=== PATIENT | male | born 1975 | race Caucasian/White ===

== ENCOUNTER 2019-10-04 02:22 | Inpatient (IN) | payer BC ==
[2019-10-04] MEDS ORDERED: Senokot S 8.6-50 MG TAB PO PRN (04:26)
[2019-10-04] MEDS ORDERED: Ondansetron PF 4 MG/2 ML Vial IVP PRN (04:26)
[2019-10-04] MEDS ORDERED: Acetaminophen 325 MG TAB PO PRN (04:26)
[2019-10-04] MEDS ORDERED: Dextrose 5 % And 0.9 % NaCl 1,000 ML IV SCH (05:00)
[2019-10-04] MEDS ORDERED: Sodium Chloride 0.9% 1,000 ML IV SCH (05:00)
[2019-10-04 05:14] LABS: Hemoglobin 19.5 g/dL (14.0-18.0); Mean Corpuscular HGB CONC 33.6 g/dL (32.0-36.0); Mean Corpuscular Hemoglobin 30.5 pg (27.0-31.0); Mean Corpuscular Volume 90.8 fL (78.0-98.0); Mean Platelet Volume 7.5 fL (7.4-10.4); Platelet Count 324 thou/uL (130-400); RBC Distribution Width 12.1 % (11.5-14.5); Red Blood Cell (RBC) Count 6.39 mill/uL (4.70-6.10); White Blood Cell (WBC) Count 22.1 thou/uL (4.8-10.8)
[2019-10-04 05:27] LABS: Anion Gap 13 mmol/L (10-20); BUN (Urea Nitrogen) 12 mg/dL (8.9-20.6); Calc. Creatinine Clearance 0 mL/min (70-130); Calcium 8.5 mg/dL (7.8-10.44); Carbon Dioxide 25 mmol/L (22-29); Chloride 105 mmol/L (98-107); Estimated GFR-MDRD 44; Glucose 111 mg/dL (70-105); Potassium 4.5 mmol/L (3.5-5.1); Sodium 138 mmol/L (136-145)
[2019-10-04 05:35] LABS: Band 22 % (5-11); Lymphocytes 7 % (21-51); MDiff Complete? YES; Metamyelocyte 1 % (0-0); Monocytes 3 % (0-10); Neutrophil 67 % (42-75)
--- NOTE | 2019-10-04 06:16 | HP ---
CHIEF COMPLAINT: Diarrhea, nausea, and vomiting. HISTORY OF PRESENT ILLNESS: The patient is a very pleasant 43-year-old male with a history of asthma, who presents to the hospital with complaints of diarrhea and nausea and vomiting going on for the past 1-1/2 day. Furthermore, the patient states that he had sudden onset of abdominal cramping with significant amount of diarrhea for about a day and a half. He denies eating out anywhere. Denies any sick contacts. Denies any travel. Denies any [id number] medication or prescription medication use. The patient denies any family history of autoimmune Crohn's or ulcerative colitis. The patient also has been having nausea and vomiting and has not been able to keep anything down. He denies any fevers, however, states that he has been feeling cold. The patient states that he did take some Imodium, however, without any relief. PAST MEDICAL HISTORY: History of asthma. PAST SURGICAL HISTORY: Denies. FAMILY HISTORY: No history of heart disease, cancer, Crohn's disease or ulcerative colitis or any autoimmune disease per the patient. SOCIAL HISTORY: He currently chews tobacco. No alcohol use. No drug use. He is a full code. Lives with his . REVIEW OF SYSTEMS: All negative except for the ones mentioned above in the HPI. ALLERGIES: NO KNOWN DRUG ALLERGIES. MEDICATIONS: He takes Symbicort. PHYSICAL EXAMINATION: VITAL SIGNS: Temperature of 98.8, oxygen saturation 96% on room air, respirations are 18, and blood pressure 106/97. GENERAL: He is awake, alert, and oriented x3. Appears ill. CARDIOVASCULAR: S1 and S2 present. No murmurs, rubs, or gallops. LUNGS: Clear to auscultation. No rhonchi or wheezes noted. ABDOMEN: Soft. Bowel sounds are present x2. Pain upon palpation to lower abdominal area. NEUROVASCULAR: There are no focal deficits noted. SKIN: No cuts, lesions, or bruises noted. EXTREMITIES: No pitting edema noted. Pedal pulses present x2. LABORATORY RESULTS: His WBC was 19.9, hemoglobin is 21, hematocrit is 66.7, and platelets of 368. He does have bands of 15. Chemistries; sodium of 134, potassium 4.7, and creatinine of 2.04. The patient had a CT of abdomen and pelvis, which indicated diffuse colonic and distal small bowel wall thickening, favoring inflammatory bowel disease. ASSESSMENT AND PLAN: The patient is a very pleasant 43-year-old male, who presents to the hospital with nausea, vomiting, and diarrhea going on for the past 1-1/2 days. 1. Colitis. The patient is having severe diarrhea. His last diarrhea was while I was in the ER interviewing him. It appears very mucousy. No blood was noted in the diarrhea. We will start the patient on IV hydration. We will give him another bolus and started him on D5 NS at 100 mL an hour. After the bolus, his lactic acid was 2.1. We will start him on Cipro and Flagyl. GI has been consulted. We will check stool studies. 2. Acute kidney injury, most likely secondary to dehydration. We will continue IV hydration and monitor his urine output. 3. Non-anion gap metabolic acidosis. Again, this is probably most likely from diarrhea. We will continue to monitor. 4. Leukocytosis with bandemia, most likely due to his nausea, vomiting, and diarrhea. We will continue IV hydration and antibiotics. 5. Elevated hemoglobin. I believe this is just hemoconcentrated. I will recheck another CBC and BMP. 6. We will put the patient on enoxaparin for deep venous thrombosis prophylaxis. Job ID: [id number]
[2019-10-04] MEDS: metroNIDAZOLE 500 MG in Premix Bag 1 BAG IVPB SCH ×3 (06:32→22:31)
[2019-10-04] MEDS: Dextrose 5 % And 0.9 % NaCl 1,000 ML IV SCH ×3 (06:36→20:09)
[2019-10-04 07:11] VITALS: BMI 33.4
[2019-10-04] MEDS: Enoxaparin Sodium 40 MG/0.4 ML SYRINGE SC SCH (09:26)
[2019-10-04 11:43] LABS: Hemoglobin 15.9 g/dL (14.0-18.0); Mean Corpuscular HGB CONC 33.6 g/dL (32.0-36.0); Mean Corpuscular Volume 92.2 fL (78.0-98.0); Mean Platelet Volume 7.3 fL (7.4-10.4); Platelet Count 281 thou/uL (130-400); RBC Distribution Width 11.9 % (11.5-14.5); Red Blood Cell (RBC) Count 5.14 mill/uL (4.70-6.10); White Blood Cell (WBC) Count 17.2 thou/uL (4.8-10.8)
[2019-10-04 12:01] LABS: Anion Gap 10 mmol/L (10-20); BUN (Urea Nitrogen) 12 mg/dL (8.9-20.6); Calc. Creatinine Clearance 102 mL/min (70-130); Calcium 7.5 mg/dL (7.8-10.44); Carbon Dioxide 21 mmol/L (22-29); Chloride 108 mmol/L (98-107); Estimated GFR-MDRD 57; Glucose 119 mg/dL (70-105); Potassium 3.8 mmol/L (3.5-5.1); Sodium 135 mmol/L (136-145)
[2019-10-04 12:23] LABS: Band 16 % (5-11); Eosinophils 1 % (0-10); Lymphocytes 6 % (21-51); MDiff Complete? YES; Monocytes 6 % (0-10); Neutrophil 70 % (42-75); RBC Morphology Normal; Reactive Lymphocytes 1 % (0-10)
--- NOTE | 2019-10-04 13:39 | PDOC.EVN ---
Event Note - Event Note Event Note: Seen and examined. Discussed with at bedside. Patient alert and oriented times three with good insight and clinical condition. Patient is somnolent and hasn't slept well since this started. Abdominal pain has resolved. No longer vomiting. BP blood work shows down trending of WBC count and improvement of renal function. Patient is responding to maximal medical therapy. Patient on appropriate antibiotics. Pending G.I. evaluation. Patient has not had any overt black or blood in bowel movement or vomitus.
--- NOTE | 2019-10-04 14:43 | RAD ---
XR Chest 1 View History: Cough Comparison: None. Findings: Lungs are clear. No pneumothorax. No effusion. No acute osseous abnormality. Cardiac silhou ette and mediastinal contours are within normal limits. Impression: No acute intrathoracic abnormality.
[2019-10-04] MEDS: Morphine 2 MG/ML SYRINGE SLOW IVP PRN (17:13)
[2019-10-04] MEDS: Mometasone/Formoterol 120 PUFF INHALER INH SCH (18:16)
--- NOTE | 2019-10-04 19:11 | CON ---
DATE OF CONSULTATION: 10/04/2019 REASON FOR CONSULTATION: Increased diarrhea and abdominal pain. CONSULTING PROVIDER: Dr. Sofy Rosario. HISTORY OF PRESENT ILLNESS: The patient is a 43-year-old male with past medical history of asthma, low testosterone (getting steroid injections as an outpatient), and possible polycythemia, presenting with complaints of diarrhea and abdominal pain. The patient states that he was in his usual state of health until approximately 2 to 3 days ago when he had acute onset of frequent voluminous diarrhea characterized as having approximately 20 to 30 liquid bowel movements in a 24-hour period. The diarrhea consisted primarily of mucus and liquid with small amount of stool and sloughing of the colonic lining. However, he denied any appearance of overt hematochezia, although he did have one episode of a blood-tinged stool. With this increased frequency of diarrhea, he did not have any increased difficulty with defecation that would require straining or abdominal pressure to facilitate defecation. However, with the appearance of this diarrhea, it was associated with increased lower abdominal pain that was characterized as a sharp type pain, would radiate to the generalized abdomen and was constant with waxing and waning severity. This pain was worse with increased physical activity/movement and sometimes worse with having a bowel movement, although the patient did explain that he did have some pain relief after having a bowel movement as well. This pain reached a severity of 10/10. Associated symptoms with the above were nausea and vomiting with nonbloody emesis, diaphoresis, and subjective chills. However, the patient denied any overt fever, hematemesis, melena, dysphagia, odynophagia, or significant weight loss. With the increase in his diarrhea and abdominal pain, it prompted him to seek healthcare assistance at the [facility] and while in the ER, the patient was placed on IV fluid resuscitation as well as started on antibiotics in light of a possible infectious etiology. 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 REVIEW OF SYSTEMS: A 10-category review of systems was obtained with all responses negative except for the pertinent positives as listed in HPI. PAST MEDICAL HISTORY: As per HPI. PAST SURGICAL HISTORY: None. FAMILY HISTORY: Denies any GI malignancies or inflammatory bowel disease. SOCIAL HISTORY: Denies any alcohol or illicit drug use. Although, he currently uses chewing tobacco. OUTPATIENT MEDICATIONS: Symbicort. ALLERGIES: NO KNOWN DRUG ALLERGIES. PHYSICAL EXAMINATION: VITAL SIGNS: Temperature 98.1, pulse 100, blood pressure 144/75, respiratory rate 18, and saturating 94% on room air. GENERAL: The patient was lying in bed, in no acute distress. Alert and oriented x4. HEENT: Normocephalic and atraumatic. NECK: Supple. No JVD or scleral icterus noted. CARDIOVASCULAR: Tachycardic rate, but regular rhythm. No discernible gallops or rubs. RESPIRATORY: Clear to auscultation bilaterally with no discernible wheezes or rales. ABDOMEN: Normoactive bowel sounds. Soft and nondistended. Tenderness to palpation in all abdominal quadrants. EXTREMITIES: No cyanosis, clubbing, or edema. LABORATORY DATA: CBC with a white blood cell count of 17.2, hemoglobin 15.9, hematocrit 47.4, platelets 281, bands of 22%. Chemistry with a sodium of 135, potassium 3.8, chloride 108, CO2 of 21, BUN 12, creatinine 1.38, and glucose 119. IMAGING DATA: No current GI imaging is available for review. ASSESSMENT AND PLAN: The patient is a 43-year-old male with past medical history of asthma, low testosterone on supplemental injections, and possible polycythemia, presenting with acute onset of diarrhea associated with elevated white blood cell count consistent with acute infectious diarrhea. Acute infectious diarrhea. The patient is presenting with acute onset of frequent voluminous stools over the last 2 to 3 days after the ingestion of unwashed blueberries. This was associated with increased abdominal pain, nausea, vomiting with nonbloody emesis, and diaphoresis as well. Again, most consistent with acute infectious diarrhea. Stool studies are still pending at this time. However, the evaluation for Clostridium difficile has been negative thus far. Given that the antibiotics for this condition were started prior to obtaining stool samples, speciation of the exact pathogen may not be ascertained in order to either tailor antibiotics or evaluate for further infections. However, at this time, the patient is currently responding to more conservative management including IV fluid support and antibiotic administration with both ciprofloxacin and metronidazole. Recommendations: 1. We would continue the patient on IV fluid resuscitation, given his significant voluminous diarrhea and most likely dehydration associated with this condition. 2. We would monitor the patient's potassium given significant losses with frequent diarrhea. 3. We would continue the antibiotics for the time being unless speciation of the causative pathogen can be established and tailoring of antibiotics at that time. If all stool studies are negative, then I would recommend continuation of antibiotics for approximately 7-day course. 4. Pain control per primary team. 5. Can continue the clear liquid diet and advance diet as tolerated. 6. We would monitor the patient's chemistries daily for possible hemolytic uremia syndrome associated with an antibiotic administration with infectious pathogens. We will continue to follow. Please call with any questions. Job ID: [id number]
[2019-10-05] MEDS: Morphine 2 MG/ML SYRINGE SLOW IVP PRN ×3 (04:55→20:03)
[2019-10-05] MEDS: Dextrose 5 % And 0.9 % NaCl 1,000 ML IV SCH ×3 (05:00→14:47)
[2019-10-05] MEDS: metroNIDAZOLE 500 MG in Premix Bag 1 BAG IVPB SCH ×3 (05:01→21:42)
[2019-10-05 05:16] LABS: #Eosinphils 0.2 thou/uL (0.0-0.7); #Lymphocytes 1.1 thou/uL (1.20-3.40); #Neutrophils 7.9 thou/uL (1.40-6.50); %Basophils 0.4 % (0.0-1.0); %Eosinophils 1.7 % (0.0-10.0); %Lymphocytes 10.7 % (21.0-51.0); %Monocytes 9.8 % (0.0-10.0); %Neutrophils 77.4 % (42.0-75.0); Hemoglobin 14.6 g/dL (14.0-18.0); Mean Corpuscular HGB CONC 33.6 g/dL (32.0-36.0); Mean Corpuscular Hemoglobin 30.7 pg (27.0-31.0); Mean Corpuscular Volume 91.4 fL (78.0-98.0); Mean Platelet Volume 7.4 fL (7.4-10.4); Platelet Count 247 thou/uL (130-400); Red Blood Cell (RBC) Count 4.74 mill/uL (4.70-6.10); White Blood Cell (WBC) Count 10.2 thou/uL (4.8-10.8)
[2019-10-05 05:35] LABS: Anion Gap 7 mmol/L (10-20); BUN (Urea Nitrogen) 7 mg/dL (8.9-20.6); Calc. Creatinine Clearance 118 mL/min (70-130); Calcium 7.7 mg/dL (7.8-10.44); Carbon Dioxide 26 mmol/L (22-29); Chloride 111 mmol/L (98-107); Estimated GFR-MDRD 67; Glucose 105 mg/dL (70-105); Potassium 3.9 mmol/L (3.5-5.1); Sodium 140 mmol/L (136-145)
[2019-10-05] MEDS: Mometasone/Formoterol 120 PUFF INHALER INH SCH ×2 (07:04→18:26)
[2019-10-05] MEDS: Enoxaparin Sodium 40 MG/0.4 ML SYRINGE SC SCH (08:09)
--- NOTE | 2019-10-05 14:26 | PDOC.HOSPP ---
- Subjective Subjective: Seen and examined. Clinically improved from yesterday. Diarrhea persists, though is slowing. No black or bloody bowel movements. Tolerating diet without nausea or vomiting. Overall he is feeling much better. All current results discussed in detail. Time was given for questions. All questions answered in detail, patient and family are happy with plan of care. - Objective Vital Signs & Weight: Vital Signs (12 hours) Temp Pulse Resp BP Pulse Ox 10/05/19 12:15 98.1 F 78 18 103/65 97 10/05/19 08:00 95 10/05/19 07:10 97.6 F 81 18 98/60 95 10/05/19 07:04 81 12 10/05/19 06:56 81 12 10/05/19 04:00 97.9 F 63 18 112/62 98 Weight Admit Weight 226 lb Weight 226 lb 8 oz I&O: 10/04/19 10/05/19 10/06/19 06:59 06:59 06:59 Intake Total 4140 840 Balance 4140 840 Result Diagrams: 10/05/19 05:01 10/05/19 05:01 Radiology Reviewed by me: Yes Hospitalist ROS - Review of Systems All other systems reviewed; all pertinent +/- noted in HPI/Subj - Medication Medications: Active Medications Generic Name Dose Route Start Last Admin Trade Name Freq PRN Reason Stop Dose Admin Albuterol/Ipratropium 3 ml 10/04/19 15:00 10/05/19 13:57 Duoneb NEB Not Given [id number] HARRY Enoxaparin Sodium 40 mg 10/04/19 09:00 10/05/19 08:09 Lovenox SC 40 mg 0900 HARRY Administration Ciprofloxacin/Dextrose 400 mg/ 200 mls @ 200 mls/hr 10/04/19 09:00 10/05/19 08:08 Device IVPB 200 mls Q12HR HARRY Administration Metronidazole 500 mg/ Device 100 mls @ 100 mls/hr 10/04/19 06:00 10/05/19 13: 13 IVPB 100 mls Q8HR HARRY Administration Dextrose/Sodium Chloride 1,000 mls @ 125 mls/hr 10/04/19 05:00 10/05/19 12:32 D5 0.9% Ns IV 1,000 mls .Q8H HARRY Administration Mometasone Furoate/Formoterol Fumar 2 puff 10/04/19 18:30 10/05/19 07:04 Dulera 200 Mcg/5 Mcg Inhaler INH 2 puff BID-RT HARRY Administration Morphine Sulfate 2 mg 10/04/19 04:28 10/05/19 12:35 Morphine SLOW IVP 2 mg Q4H PRN Administration Moderate to Severe Pain (6-10) - Exam General Appearance: NAD, awake alert Eye: PERRL ENT: normocephalic atraumatic, moist mucosa Neck: supple, symmetric, no lymphadenopathy Heart: no murmur, no gallops, no rubs Respiratory: CTAB, no wheezes, no rales, no ronchi, normal chest expansion Gastrointestinal: soft, non-tender, no guarding, no rigidity Extremities: no edema Skin: no lesions, no rashes Neurological: cranial nerve grossly intact, no focal deficits Musculoskeletal: normal tone, no muscle wasting, generalized weakness Psychiatric: normal affect, normal behavior, A&O x 3 Hosp A/P (1) Infectious colitis, enteritis and gastroenteritis Code(s): A09 - INFECTIOUS GASTROENTERITIS AND COLITIS, UNSPECIFIED Status: Acute (2) Diarrhea Code(s): R19.7 - DIARRHEA, UNSPECIFIED Status: Acute (3) Sepsis Code(s): A41.9 - SEPSIS, UNSPECIFIED ORGANISM Status: Acute (4) BREANN (acute kidney injury) Code(s): N17.9 - ACUTE KIDNEY FAILURE, UNSPECIFIED Status: Acute (5) Dehydration Code(s): E86.0 - DEHYDRATION Status: Acute (6) Toxic metabolic encephalopathy Code(s): G92 - TOXIC ENCEPHALOPATHY Status: Acute (7) Abdominal pain Code(s): R10.9 - UNSPECIFIED ABDOMINAL PAIN Status: Acute (8) Asthma Code(s): J45.909 - UNSPECIFIED ASTHMA, UNCOMPLICATED Status: Acute - Plan Plan: medical unit gastroenterology consultation, recommendations appreciated G.I. specific antibiotics no black or blood in stool or vomitus no anemia with hemoglobin 14 on 10/05/2019 IV fluids acute kidney injury has improved stool studies noted okay for patient to take his own Symbicort Duoneb therapy change to PRN blood pressure control blood sugar control G.I. prophylaxis DVT prophylaxis
--- NOTE | 2019-10-05 15:04 | PRG ---
DATE OF SERVICE: 10/05/2019 REASON FOR CONSULTATION: Infectious diarrhea. SUBJECTIVE: The patient states that he is doing much better today, where he says his abdominal pain is improved when compared to yesterday. Over the last 24 hours, he has had approximately 4 to 7 liquid bowel movements, but have been decreasing in volume of liquid stool. Otherwise, he denies any nausea, vomiting, fevers, chills, hematochezia, or melena. OBJECTIVE: VITAL SIGNS: Temperature 98.1, pulse 78, blood pressure 103/65, respiratory rate 18, and saturating 97% on room air. GENERAL: The patient is lying in bed, in no acute distress. Alert and oriented x4. CARDIOVASCULAR: Regular rate and rhythm. RESPIRATORY: Clear to auscultation bilaterally. ABDOMEN: Normoactive bowel sounds. Soft, nondistended. Mild tenderness to palpation in all abdominal quadrants (improved from previous exam). EXTREMITIES: No cyanosis, clubbing, or edema. LABORATORY DATA: CBC with a white blood cell count of 10.2, hemoglobin 14.6, hematocrit 43.3, and platelets 247. Chemistry with a sodium of 140, potassium 3.9, chloride 111, CO2 of 26, BUN 7, creatinine 1.2, and glucose 105. IMAGING DATA: No current GI imaging is available for review. ASSESSMENT AND PLAN: The patient is a 43-year-old male with past medical history of asthma, low testosterone, on supplemental injections, and possible polycythemia, presenting with a probable acute infectious diarrhea. Acute infectious diarrhea. The patient initially presented with a 2- to 3-day history of increased diarrhea in terms of consistency and volume. As such, the patient began to exhibit signs of dehydration, but has been responding well thus far to more conservative management with IV fluids and antibiotic administration. Infectious stool studies so far have been negative for Campylobacter, E coli, and Clostridium difficile with stool culture negative at 24 hours. At this time, the etiology of his diarrhea is largely unknown, but may be due to the administration of antibiotics prior to obtaining his stool studies. Given his improvement with IV fluids and antibiotic administration, I would continue these at this time. RECOMMENDATIONS: 1. We would continue with IV fluid resuscitation. 2. We would continue to monitor the patient's electrolytes given the frequency of diarrhea. 3. Continue the current antibiotics with total duration of therapy of 7-day course. 4. Pain control per primary team. 5. Advance diet as tolerated. If the patient is improving, could be potentially discharged tomorrow with outpatient antibiotics again for a total duration of therapy of 7 days. We will continue to follow. Please call with any questions. Job ID: [id number]
[2019-10-06] MEDS: Dextrose 5 % And 0.9 % NaCl 1,000 ML IV SCH (05:14)
[2019-10-06] MEDS: metroNIDAZOLE 500 MG in Premix Bag 1 BAG IVPB SCH (05:14)
[2019-10-06 06:05] LABS: #Basophils 0.1 thou/uL (0.0-0.2); #Eosinphils 0.3 thou/uL (0.0-0.7); #Lymphocytes 1.3 thou/uL (1.20-3.40); #Monocytes 0.9 thou/uL (0.11-0.59); #Neutrophils 4.8 thou/uL (1.40-6.50); %Basophils 0.9 % (0.0-1.0); %Eosinophils 4.3 % (0.0-10.0); %Lymphocytes 17.6 % (21.0-51.0); %Monocytes 12.6 % (0.0-10.0); %Neutrophils 64.6 % (42.0-75.0); Hemoglobin 14.7 g/dL (14.0-18.0); Mean Corpuscular HGB CONC 34.1 g/dL (32.0-36.0); Mean Corpuscular Hemoglobin 31.6 pg (27.0-31.0); Mean Corpuscular Volume 92.6 fL (78.0-98.0); Mean Platelet Volume 7.1 fL (7.4-10.4); Platelet Count 244 thou/uL (130-400); RBC Distribution Width 11.9 % (11.5-14.5); Red Blood Cell (RBC) Count 4.66 mill/uL (4.70-6.10); White Blood Cell (WBC) Count 7.4 thou/uL (4.8-10.8)
[2019-10-06 06:28] LABS: Anion Gap 7 mmol/L (10-20); BUN (Urea Nitrogen) Less than 4 mg/dL (8.9-20.6); Calc. Creatinine Clearance 124 mL/min (70-130); Calcium 7.9 mg/dL (7.8-10.44); Carbon Dioxide 31 mmol/L (22-29); Chloride 106 mmol/L (98-107); Estimated GFR-MDRD 71; Glucose 89 mg/dL (70-105); Potassium 3.8 mmol/L (3.5-5.1); Sodium 140 mmol/L (136-145)
[2019-10-06] MEDS: Mometasone/Formoterol 120 PUFF INHALER INH SCH (07:10)
[2019-10-06] MEDS: Enoxaparin Sodium 40 MG/0.4 ML SYRINGE SC SCH (08:19)
[2019-10-06 11:39] VITALS: BP 97/64; TEMP 98
--- NOTE | 2019-10-07 00:44 | DIS ---
DATE OF ADMISSION: 10/04/2019 DATE OF DISCHARGE: 10/06/2019 REASON FOR HOSPITALIZATION: Abdominal pain, nausea, and diarrhea. SIGNIFICANT FINDINGS: The patient was found to have infectious colitis, acute kidney injury, and sepsis diagnosed on admission. PROCEDURES PERFORMED AND TREATMENTS RENDERED: The patient was admitted to the medical unit for close management. The patient was seen and evaluated by Gastroenterology-please see full consultation notes and progress notes for details. The patient started on GI specific antibiotics, IV fluid resuscitation, and symptomatic therapy for nausea, vomiting, and diarrhea. With maximum medical therapy, the patient made a good response. The patient's sepsis resolved, renal function normalized, and he returned to his normal state of well-being. The patient did have stool studies-please see full microbiology reports for details-all stool studies were found to be negative. Unfortunately, there was no definitive organism identified as a causative agent for infectious diarrhea and enteritis/colitis. The patient was recommended safe for discharge by Gastroenterology on 10/06/2019 with close followup in the outpatient setting and completion of a full course of oral antibiotics. The patient recommended to stay well hydrated and drink Gatorade daily until diarrhea has completely subsided. CONDITION ON DISCHARGE: Stable. SPECIFIC INSTRUCTIONS FOR THE PATIENT/FAMILY: 1. The patient recommended to complete a full course of oral antibiotics, metronidazole and ciprofloxacin-if he is unable to get these medications, he must return to acute care hospital immediately. 2. The patient is recommended to drink Gatorade and other isotonic solutions while he is having diarrhea and maintain an adequate level of hydration-or return to acute care hospital immediately. 3. The patient is recommended to follow up with primary care physician in the next 5 to 7 days. 4. The patient is recommended to follow up with Gastroenterology in the next 4 to 6 weeks. 5. The patient is recommended to return to acute care hospital immediately if there is any black or blood in his stool or vomitus. 6. The patient is recommended to return to acute care hospital immediately if signs or symptoms return, worsen, or any other new symptoms occur. DISCHARGE MEDICATIONS: 1. Metronidazole 500 mg one tablet p.o. q.8 hours for the next 6 days, 18 tablets. 2. Ciprofloxacin 250 mg p.o. q.12 hours for the next 6 days, 12 tablets. 3. Symbicort home medication is to be continued without changes. 4. Albuterol rescue inhaler as needed q.4 hours p.r.n. shortness of breath. HOSPITAL COURSE: Mr. Day is a very pleasant 43-year-old gentleman, who presents to [facility] in [place], [place] on 10/04/2019-please see full history and physical, progress notes, consultation notes, and radiographic imaging reports for details. The patient was diagnosed with sepsis with gastrointestinal source. The patient did have a CT scan of the abdomen and pelvis at transferring hospital-please see full radiographic report for details-CT scan of the abdomen and pelvis does demonstrate significant diffuse colonic and distal small bowel wall thickening with distribution favoring inflammatory bowel disease. Infectious etiologies are possible. Because of these findings, the patient was seen and evaluated by Gastroenterology. The patient at no point has had any blood or black in his stool. At one point, they thought that they might have seen a very small amount of red blood, after he had vomited numerous times and likely there was some mild stomach irritation. The patient was monitored for several days in the [facility] for episodes of bleeding. While he was in the hospital, there were no episodes of blood or black in the stool or vomit. The patient's hemoglobins were monitored and his hemoglobin staying at a level of 15 to 14 for greater than 48 hours. The patient with hemoglobin of 14.7 on the day of discharge. Due to the fact the patient is not having any bleeding is likely that an infectious cause of gastroenteritis/colitis causes in the patient's symptoms. Clinically, the patient does not present like an inflammatory bowel case as there has been absolutely zero blood or black in the stool. The patient's laboratory data did improve with maximum medical therapy. The patient's white blood cell count normalized to a level of 7.4 on the day of discharge. The patient's renal function also normalized with a creatinine maximum of 1.7, which improved to 1.1 on the day of discharge. The patient is tolerating regular diet. The patient's bowel movements have slowed down to only one or two per day so far and he was recommended safe for discharge by Gastroenterology. The patient recommended to complete a full course of oral antibiotics for resolution of acute infectious gastroenteritis/colitis. The patient recommended to return to [facility] immediately if he sees any blood or black in his stool-if that is the case, then he may require endoscopy for further evaluation. I explicitly informed the patient in the presence of his that the patient must follow up on these results with his primary care physician in the next 5 to 7 days and they states that they will be compliant. I explicitly informed the patient and his that he must follow up with Gastroenterology in the outpatient clinic. I would recommend repeat imaging in the next several months, as ordered in the Gastroenterology Clinic to ensure resolution of infectious colitis. If infectious colitis does not resolve on repeat imaging, the patient may require endoscopy for definitive diagnosis. Again, I explicitly informed the patient and his that if there is any blood or black in his bowel movement or vomit, he must return to acute care hospital immediately and he may require endoscopic intervention. The patient and his are understanding disease pathology and states that they will comply and return to acute care hospital if he has any blood or black in his vomitus or stool. The patient recommended to return to acute care hospital immediately if signs or symptoms return, worsen, or any other new symptoms occur. The patient recommended to stay well hydrated and drink Gatorade 1 to 2 bottles every day until he is having regular bowel movements consistently. The patient recommended to potato picker his antibiotics at his preferred pharmacy and I explicitly informed him to abstain from alcohol use while on metronidazole as he would have Antabuse type reaction and become very sick, patient understands these risks. The patient recommended to return to acute care hospital immediately if signs or symptoms return, worsen, or any other new symptoms occur. Greater than 41 minutes spent coordinating care and discharge process for the patient. Job ID: [id number]
--- NOTE | 2019-10-07 20:35 | PQF ---
[facility] Technician Crystal Reports Winform Viewer TORRES PLATA BERNICERYAN [id number] [id number] CLINICAL DOCUMENTATION CLARIFICATION FORM: POST DISCHARGE Addendum to original discharge summary date: ____ Late entry note date: __ DATE: 10/07/19 ATTN: Alan Diana Please exercise your independent, professional judgment in responding to the clarification form. Clinical indicators are provided on the bottom of this form for your review Can you please further clarify if Toxic Encephalopathy is ruled in or ruled out? Toxic Encephalopathy [ XX ] Ruled in diagnosis [ ] Continue to treat [ ] Resolved [ ] Ruled out diagnosis [ ] Cannot rule out diagnosis [ ] Other diagnosis [ ] Unable to determine In addition, please specify: Present on Admission (POA): [ XX ] Yes [ ] No [ ] Unable to determine For continuity of documentation, please document condition throughout progress notes and discharge summary. Thank You. CLINICAL INDICATORS - SIGNS / SYMPTOMS / LABS Hospitalist PN Dr. Bland . pg.4- toxic metabolic encephalopathy H and P pg.1- Chief complaint: diarrhea, nausea and vomiting H and P pg.3- PE: General: he is awake,alert and oriented x3. Appears ill Event Note pg.1 10/04- patient is somnolent and hasn't slept well since this started RISK FACTORS Colitis- H and P pg.2 Acute kidney injury- H and P pg.2 Acute infectious diarrhea- Consult Dr. Friend pg.2 TREATMENTS IV hydration- H and P pg.2 IV antibiotics- H and P pg.2 GI Consult 10/04 Dr. Friend Stool Culture- Microbiology 10/04 (This form is maintained as a part of the permanent medical record) 2014 [employer]. All Rights Reserved [email or web address] [not provided] MTDD
== END 2019-10-06 12:00 | disposition home or self-care (01) | DRG 871 ==
LOC: ERS 02:22 → T4-A 05:42
PROVIDERS: ADMIT Internal Medicine; ATTEND Internal Medicine
DX: A41.9 Sepsis, unspecified organism (principal); G92 Toxic encephalopathy; A09 Infectious gastroenteritis and colitis, unspecified; N17.9 Acute kidney failure, unspecified; E87.2 Acidosis; J45.909 Unspecified asthma, uncomplicated; E86.0 Dehydration; F17.220 Nicotine dependence, chewing tobacco, uncomplicated; D75.1 Secondary polycythemia; Z79.51 Long term (current) use of inhaled steroids
CPT/HCPCS: 36415; 71045; 80048; 83630; 85025; 87045; 87046; 87324; 87427; 87449; 94640; 94664; 99285; J0744; J1650; J2270; J7620